=== PATIENT | male | born 1950 | race Caucasian/White ===

== ENCOUNTER → 2018-04-18 | Outpatient (CLI) | payer MEDICARE ==
[~2018-04-18] MED LIST: CARV6.25 PO; LOSA25TA5 PO
== END | disposition home or self-care (01) ==
LOC: LAB 09:30
PROVIDERS: ATTEND Internal Medicine Cardiovascular Disease
DX: I10 Essential (primary) hypertension (principal); E78.2 Mixed hyperlipidemia
CPT/HCPCS: 36415; 80061; 80076

== ENCOUNTER → 2021-02-22 | Outpatient (CLI) | payer MEDICARE ==
[~2021-02-22] MED LIST changes: +LOSA25TA12 PO; -LOSA25TA5 PO
--- NOTE | 2021-02-22 14:31 | DIREP ---
PROCEDURE:CHEST 2 VIEWS COMPARISON:[facility], CR, XRAY CHEST 2 VWS, 02/18/2016, 02:41 PM. INDICATIONS:R06.02 SHORTNESS OF BREATH FINDINGS: LUNGS/PLEURA:Small right and minimal left pleural effusions. CARDIAC:Mild cardiomegaly. CABG postsurgical changes. AICD. MEDIASTINUM:Normal. No visible mass or adenopathy. BONES:Normal. No fracture or visible bony lesion. OTHER:Negative. CONCLUSION:Mild cardiomegaly and bilateral pleural effusions. Postsurgical changes are also noted. No evidence of alveolar consolidation. Dictated by: Alo Maradiaga M.D. on 02/22/2021 at 02:23 PM
== END | disposition home or self-care (01) ==
LOC: RAD 11:51
PROVIDERS: ATTEND Internal Medicine
DX: J90 Pleural effusion, not elsewhere classified (principal); I51.7 Cardiomegaly
CPT/HCPCS: 71046